=== PATIENT | female | born 1975 | race Caucasian/White ===

== ENCOUNTER 2022-05-10 18:03 | Emergency (ER) | payer SELFPAY ==
[2022-05-10 19:25] LABS: ESTIMATED GFR 70 mL/min (>60)
[2022-05-10] MEDS ORDERED: LORazepam 1 MG Tab PO ONE (20:48)
== END 2022-05-10 21:00 | disposition home or self-care (01) ==
LOC: JD.ED 18:03
DX: R10.84 Generalized abdominal pain (principal)
CPT/HCPCS: 36415; 74018; 80053; 80306; 81001; 81025; 85025; 86140; 99284; A9270